=== PATIENT | female | born 1960 | race Caucasian/White ===

== ENCOUNTER 2017-05-22 05:58 | Day surgery (SDC) | payer OTHER ==
[2017-05-21 10:39] VITALS: BMI 37.1
--- NOTE | 2017-05-22 05:35 | HP ---
SHORT STAY HISTORY AND PHYSICAL HISTORY OF PRESENT ILLNESS: This is a 56-year-old female who comes for a colonoscopy for colon cancer screening. The patient has no specific GI symptoms at the present time. She has no fa vivienne history of colon cancer. ALLERGIES: CODEINE. SOCIAL HISTORY: The patient smokes one-half packet of cigarettes per day. She drinks alcohol socia lly. MEDICAL ILLNESSES: 1. Obesity. 2. Hypertension. 3. Hyperlipidemia. 4. Hyperglycemia. 5. Status post appendectomy. 6. Status post hysterectomy. 7. History of kidney stones and gallstones. PHYSICAL EXAMINATION: VITAL SIGNS: Pulse is 70, blood pressure 140/70. HEENT: Conjunctivae clear. CARDIOVASCULAR SYSTEM: First and second heart sounds normal. LUNGS: Clear to auscultation. ABDOMEN: Soft to palpate. No organomegaly. No tenderness. No masses. EXTREMITIES: Reveal no edema. ADMITTING DIAGNOSIS: A 56-year-old female undergoing colonoscopy for colon cancer screenmignon powell
--- OUTSIDE RECORDS SUMMARY | 2017-05-22 06:02 | XMS | Clinical Summary ---
:1960 Author Organization [facility] Address [address] [place] [address] Phone Care Team Providers Name Role Phone , Primary Care Provider Unavailable Allergies Not on File Current Medications Not on file Active Problems Not on file Social History Tobacco Use Types Packs/Day Years Used Date Never Assessed Sex Assigned at Date Recorded Not on file Last Filed Vital Signs Not on file Plan of Treatment Not on file Results Not on filefrom Last 3 Months
[2017-05-22] MEDS ORDERED: Propofol 200 MG/20 ML VIAL ONE (08:04)
--- NOTE | 2017-05-22 11:41 | OP ---
DATE OF SURGERY: 05/22/2017 OPERATIVE PROCEDURE: Colonoscopy with polypectomy, biopsy. PREOPERATIVE DIAGNOSIS: A 56-year-old female undergoing colonoscopy for colon cancer scre ening. POSTOPERATIVE DIAGNOSES: 1. Sessile transverse colon polyp, status post snare cautery. 2. Sessile descending colon polyp, status post snare cautery. 3. Sessile sigmoid polyp removed with biopsy forceps. 4. Occasional sigmoid diverticular disease. PROCEDURE NOTE: The patient was placed on her left lateral position and was given sed[facility]. A rectal exam was done before the scope was advanced into the rectum. No lesions were felt on rectal exam. A Pentax video colonoscope was introduced into the rectum and advanced a ll the way into the cecum. The prep was excellent. The mucosa appeared normal. The appendiceal or ifice, ileocecal valve, and cecum, no pathology seen. The ascending colon, hepatic flexure, no path ology seen. The proximal transverse colon showed a sessile polyp. The polyp was removed with snare cautery with good hemostasis. The remainder of the transverse colon and splenic flexure, no pathol ogy seen. A sessile descending colon polyp was removed with snare cautery with good hemostasis. Th e sigmoid colon showed occasional diverticular disease. A sessile sigmoid polyp was removed with bi opsy forceps. Retroflexion of the scope in the rectum showed no lesions. DISCHARGE PLANNING: This is a 56-year-old female, who came in for a colonoscopy for colon cancer screening. She underwent colonoscopy with polypectomy and biopsy. DISCHARGE RECOMMENDATIONS: 1. The patient advised to call me if she develops abdominal pain, hematochezia or fever. 2. In the absence of any of the above symptoms, the patient will come back to me in 2 weeks.
== END 2017-05-22 09:20 | disposition home or self-care (01) ==
LOC: SDC 05:58
PROVIDERS: ATTEND Internal Medicine Gastroenterology
PROC: 0DBL8ZX Excision of Transverse Colon, Via Natural or Artificial Opening Endoscopic, Diagnostic (ICD-10-PCS; principal; 2017-05-22)
PROC: 0DBN8ZX Excision of Sigmoid Colon, Via Natural or Artificial Opening Endoscopic, Diagnostic (ICD-10-PCS; principal; 2017-05-22)
DX: Z12.11 Encounter for screening for malignant neoplasm of colon (principal); K63.5 Polyp of colon; K57.30 Diverticulosis of large intestine without perforation or abscess without bleeding; I10 Essential (primary) hypertension; F17.210 Nicotine dependence, cigarettes, uncomplicated; E78.5 Hyperlipidemia, unspecified; E66.9 Obesity, unspecified; Z68.37 Body mass index [BMI] 37.0-37.9, adult; Z90.49 Acquired absence of other specified parts of digestive tract; Z91.048 Other nonmedicinal substance allergy status; Z88.5 Allergy status to narcotic agent; Z79.899 Other long term (current) drug therapy; Z90.710 Acquired absence of both cervix and uterus; Z87.442 Personal history of urinary calculi
CPT/HCPCS: 88305; J2704

== ENCOUNTER 2017-05-28 09:15 | Outpatient (CLI) | payer OTHER ==
--- OUTSIDE RECORDS SUMMARY | 2017-05-28 09:19 | XMS | Clinical Summary ---
:1960 Author Organization [facility] Address [address] [place] [address] Phone Care Team Providers Name Role Phone [...]
--- NOTE | 2017-05-28 10:15 | MMO ---
DIAGNOSTIC RIGHT MAMMOGRAM: DATE: 05/28/17 CLINICAL HISTORY: Call-back examination. Motion artifact on preceding right MLO view. FINDINGS: There are scattered fibroglandular elements of the right breast. There is no evidence of a dominant mass, suspicious clustering of microcalcification, or architectural distortion. IMPRESSION: BIRADS 1: Negative Annual screening mammography is recommended. POS: [facility]
== END 2017-05-28 09:16 | disposition home or self-care (01) ==
LOC: MAMMO 09:15
PROVIDERS: ATTEND Obstetrics & Gynecology
DX: R92.8 Other abnormal and inconclusive findings on diagnostic imaging of breast (principal)
CPT/HCPCS: G0206-RT

== ENCOUNTER 2020-06-08 14:31 | Emergency (ER) | payer BC ==
[2020-06-08 15:03] LABS: #Basophils 0.1 thou/uL (0.0-0.2); #Eosinphils 0.3 thou/uL (0.0-0.7); #Lymphocytes 4.2 thou/uL (1.20-3.40); #Neutrophils 6.9 thou/uL (1.40-6.50); %Basophils 0.6 % (0.0-1.0); %Eosinophils 2.4 % (0.0-10.0); %Monocytes 7.8 % (0.0-10.0); %Neutrophils 55.2 % (42.0-75.0); Hemoglobin 17.5 g/dL (12.0-16.0); Mean Corpuscular HGB CONC 34.9 g/dL (32.0-36.0); Mean Corpuscular Hemoglobin 32.6 pg (27.0-31.0); Mean Corpuscular Volume 93.4 fL (78.0-98.0); Mean Platelet Volume 7.5 fL (7.4-10.4); Platelet Count 311 thou/uL (130-400); RBC Distribution Width 12.2 % (11.5-14.5); Red Blood Cell (RBC) Count 5.35 mill/uL (4.20-5.40); White Blood Cell (WBC) Count 12.4 thou/uL (4.8-10.8)
--- NOTE | 2020-06-08 15:12 | RAD ---
XR Chest Pa Lat STANDARD HISTORY: Chest pain COMPARISON: None FINDINGS: The heart size is normal. The lungs are well expanded without focal areas of consolidation, pneumothorax or pleural effusions. There are degenerative changes in the spine.. IMPRESSION: No radiographic evidence of acute cardiopulmonary process.
[2020-06-08 15:24] LABS: ALT (SGPT) 18 U/L (8-55); AST (SGOT) 18 U/L (5-34); Albumin 4.2 g/dL (3.5-5.0); Alkaline Phosphatase 71 U/L (40-110); Anion Gap 11 mmol/L (10-20); BUN (Urea Nitrogen) 14 mg/dL (9.8-20.1); Bilirubin, Total 0.4 mg/dL (0.2-1.2); Calc. Creatinine Clearance 0 mL/min (70-130); Calcium 9.5 mg/dL (7.8-10.44); Carbon Dioxide 27 mmol/L (22-29); Chloride 105 mmol/L (98-107); Estimated GFR-MDRD 69; Globulin 3.5 g/dL (2.4-3.5); Glucose 158 mg/dL (70-105); Potassium 4.1 mmol/L (3.5-5.1); Protein, Total 7.7 g/dL (6.0-8.3); Sodium 139 mmol/L (136-145)
== END 2020-06-08 17:14 | disposition left against medical advice (07) ==
LOC: ERS 14:31
DX: Z53.21 Procedure and treatment not carried out due to patient leaving prior to being seen by health care provider (principal)
CPT/HCPCS: 36415; 71046; 80053; 84484; 85025

== ENCOUNTER 2020-07-14 07:57 | Outpatient (CLI) | payer BC ==
--- NOTE | 2020-07-14 08:44 | BD ---
DEXA BONE DENSITY STUDY: Date: 07/14/2020 HISTORY: Osteoporosis SCREENING. COMPARISON: None. FINDINGS: Lumbar Spine: BMD (g/cm2) L1 1.032 T-Score: 0.4 Z-Score: 1.7 L2 1.147 T-Score: 1.1 Z-Score: 2.5 L3 1.090 T-Score: 0.1 Z-Score: 1.6 L4 1.111 T-Score: 0.5 Z-Score: 2.0 Left Femoral Neck: 0.874 T-Score: 0.2 Z-Score: 1.5 Total Left Hip: 1.259 T-Score: 2.6 Z-Score: 3.6 WHO Classification: Normal. IMPRESSION: Normal bone mineral density. POS: [facility]
--- NOTE | 2020-07-14 09:06 | MMO ---
Bilateral MAMMO Bilat Screen [facility]. CLINICAL HISTORY: Patient is 59 years old and is seen for screening. The patient has no family history of breast cancer. The patient has no personal history of cancer. VIEWS: The views performed were: bilateral craniocaudal with tomosynthesis and bilateral mediolateral oblique with tomosynthesis. FILMS COMPARED: The present examination has been compared to prior imaging studies performed at [facility] on 05/07/2018, and at [facility] on 11/27/2011, 05/14/2017 and 05/28/2017. This study has been interpreted with the assistance of computer-aided detection. MAMMOGRAM FINDINGS: There are scattered fibroglandular densities. There are stable benign appearing calcifications seen in both breasts. There are no suspicious masses, suspicious calcifications, or new areas of architectural distortion. IMPRESSION: THERE IS NO MAMMOGRAPHIC EVIDENCE OF MALIGNANCY. A ROUTINE FOLLOW-UP MAMMOGRAM IN 1 YEAR IS RECOMMENDED. THE RESULTS OF THIS EXAM WERE SENT TO THE PATIENT. ACR BI-RADS Category 2 - Benign finding MAMMOGRAPHY NOTE: 1. A negative mammogram report should not delay a biopsy if a dominant of clinically suspicious mass is present. 2. Approximately 10% to 15% of breast cancers are not detected by mammography. 3. Adenosis and dense breasts may obscure an underlying neoplasm. Reported by: ZANE CONDON MD Electonically Signed: [id number]
== END 2020-07-14 07:58 | disposition home or self-care (01) ==
LOC: BICMAMMO 07:57
PROVIDERS: ATTEND Registered Nurse
DX: Z12.31 Encounter for screening mammogram for malignant neoplasm of breast (principal); Z13.820 Encounter for screening for osteoporosis; Z78.0 Asymptomatic menopausal state
CPT/HCPCS: 77063; 77067; 77080

== ENCOUNTER 2023-03-06 10:43 | Outpatient (CLI) | payer BC | END 2023-03-06 10:44 | disposition home or self-care (01) | LOC: BICMAMMO 10:43 | PROVIDERS: ATTEND Family Medicine | DX: Z12.31 Encounter for screening mammogram for malignant neoplasm of breast (principal) | CPT/HCPCS: 77063; 77067 ==